=== PATIENT | female | born 1980 | race African-American/Black ===

== ENCOUNTER 2016-07-17 19:52 | Emergency (ER) | payer MEDICAID, MEDICARE ==
[~2016-07-17] VITALS: Ht 165.1 cm; Wt 83.6 kg
[~2016-07-17 19:52] MED LIST: CLIN1CAP5 PO; NAPR500 PO
[2016-07-17 19:53] VITALS: BP 139/96; PULSE 98; RESP 14; TEMP 98.3; O2SAT 99
[2016-07-18] MEDS ORDERED: DICL50TA PO (17:50)
[2016-07-18] MEDS ORDERED: ROBA750T PO (17:50)
== END 2016-07-17 21:39 | disposition left against medical advice (07) ==
LOC: NED 19:52
DX: R68.89 Other general symptoms and signs (principal)
CPT/HCPCS: 99281

== ENCOUNTER 2016-07-18 16:23 | Emergency (ER) | payer MEDICARE ==
[~2016-07-18] VITALS: Ht 165.1 cm; Wt 85.0 kg
[2016-07-18 16:24] VITALS: BP 147/71; PULSE 109; RESP 17; TEMP 98.1; O2SAT 99
[2016-07-18] MEDS ORDERED: ROBA750T PO (17:50)
[2016-07-18] MEDS ORDERED: DICL50TA PO (17:50)
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
[2016-07-18] MEDS ORDERED: KETOROLAC TROMETHAMINE 60 MG/2 ML (IM) VIAL IM ONE (18:00)
[2016-07-18] MEDS ORDERED: ORPHENADRINE INJ 60 MG/2 ML AMP IM ONE (18:00)
== END 2016-07-18 18:47 | disposition home or self-care (01) ==
LOC: NEPB 16:23
DX: S16.1XXA Strain of muscle, fascia and tendon at neck level, initial encounter (principal); E11.9 Type 2 diabetes mellitus without complications; I10 Essential (primary) hypertension; X58.XXXA Exposure to other specified factors, initial encounter
CPT/HCPCS: 96372; 99283; J1885; J2360; L0150

== ENCOUNTER 2016-08-08 01:59 | Emergency (ER) | payer MEDICARE ==
[~2016-08-08 01:59] MED LIST changes: -CLIN1CAP5 PO; +DICL50TA PO; -NAPR500 PO; +ROBA750T PO
[2016-08-08 02:01] VITALS: BP 141/88; PULSE 84; RESP 18; TEMP 98.1; O2SAT 97
[2016-08-08] MEDS ORDERED: CLIN150 PO (02:39)
--- NOTE | 2016-08-08 02:42 | PD ---
HPI Chief Complaint: Oral / Dental Pain or Problem Time Seen by Provider: 02:40 Travel History International Travel<30 days: No Contact w/Intl Traveler<30days: No Traveled to known affect area: No History of Present Illness HPI 36-year-old black female presents to emergency Department with complaints of dental pain. She states that a tooth in her right upper maxilla has been bothering her now for nearly 2 weeks. She is not seen a dentist yet. She has not seen a primary care doctor. She states the pain is radiating up into her right ear. It is moderate in intensity. She is noticing swelling of the lingual hard palate. No fever chills. No difficulty swallowing. No exacerbating symptoms. No palliative activity. PFSH Past Medical History Narrative Medical dIABETES, CHRONIC PAIN Hx Anticoagulant Therapy: No Cardiovascular Problems: No Chemotherapy: No Cerebrovascular Accident: No Diabetes: Yes Patient Takes Glucophage: No Diminished Hearing: No Hypertension: Yes Respiratory: No Tetanus Vaccination: Unknown ?: Not LMP: 08/07/16 : 3 Para: 2 Miscarriage: 1 : 0 Past Surgical History Section: Yes (X1) Cholecystectomy: Yes Gynecologic Surgery: Yes (c section 2012) Hysterectomy: No Other Surgery: Yes Social History Alcohol Use: No Tobacco Use: No Substance Use: No Allergies-Medications (Allergen,Severity, Reaction): Coded Allergies: No Known Allergies (Verified , 08/08/16) Reported Meds & Prescriptions Reported Meds & Active Scripts Active Cleocin (Clindamycin HCl) 150 Mg Cap 300 Mg PO Q6H Review of Systems Except as stated in HPI: all other systems reviewed are Neg Physical Exam Narrative GENERAL: This is a well-nourished, well-developed patient, in no apparent distress. SKIN: No rashes, ecchymoses or lesions. Warm and dry. HEAD: Atraumatic. Normocephalic. EYES: PERRL, EOMI, no discharge or injection. No scleral icterus. EARS: Clear NOSE: Nasal turbinates appear normal. THROAT: Mucosa pink and moist. Airway patent. The patient has multiple dental caries. There is a large dental carry in what appears to be tooth #5. She has swelling of the lingual gingiva into the hard palate. NECK: Trachea midline. supple, moves head freely. LUNGS: Clear to auscultation. CV: Regular in rhythm. ABDOMEN: Soft nontender. EXT: No clubbing cyanosis or edema. Data Data Last Documented VS Vital Signs Date Time Temp Pulse Resp B/P Pulse Ox O2 Delivery O2 Flow Rate FiO2 08/08/16 02:01 98.1 84 18 141/88 97 Room Air Orders Clindamycin (Cleocin) (08/08/16 02:45) MDM Medical Decision Making Medical Screen Exam Complete: Yes Emergency Medical Condition: Yes Medical Record Reviewed: Yes Differential Diagnosis MDM: Moderate Differential diagnoses: Dental abscess, dental caries, osteitis, cellulitis Narrative Course Patient is given clindamycin 300 mg by mouth. This is dental abscess [employer] indicates that the patient received 90 8 mg Dilaudid tablets on 07/22/16 along with 60 morphine 15 mg extended release tablets on 07/22/16. Diagnosis Primary Impression: Dental abscess Patient Instructions: General Instructions Additional Instructions: Rest. Saltwater gargles. Mosier oil on cotton balls. 3 Advil every 6 hours. Clindamycin follow-up with a dentist as soon as possible. And return to the ER if any problems. Med/Other Pt SpecificInfo: Prescription(s) given Scripts Clindamycin (Cleocin)150 Mg [id number] Mg PO Q6H #80 CAP Prov:Tashi Khanna MD 08/08/16 Disposition: 01 DISCHARGE HOME Condition: Stable Lon Carreon Aug 08, 2016 02:42
[2016-08-08] MEDS ORDERED: CLINDAMYCIN 150 MG CAP PO ONE (02:45)
== END 2016-08-08 03:44 | disposition home or self-care (01) ==
LOC: NEPB 01:59
DX: K04.7 Periapical abscess without sinus (principal)
CPT/HCPCS: 99282

== ENCOUNTER 2016-08-20 10:41 | Emergency (ER) | payer MEDICARE, OTHER ==
[~2016-08-20] VITALS: Ht 165.1 cm; Wt 90.1 kg
[~2016-08-20 10:41] MED LIST changes: +CLIN150 PO; -DICL50TA PO; -ROBA750T PO
[2016-08-20 10:43] VITALS: BP 144/88; PULSE 88; RESP 20; TEMP 98.1; O2SAT 100
[2016-08-20] MEDS ORDERED: METF500T PO (11:00)
[2016-08-20] MEDS ORDERED: NOVO7030P2 SQ (11:00)
--- NOTE | 2016-08-20 11:16 | PD ---
HPI Chief Complaint: Medication Refill Request Time Seen by Provider: 10:57 Travel History International Travel<30 days: No Contact w/Intl Traveler<30days: No Traveled to known affect area: No History of Present Illness HPI 36-year-old female presents to the emergency department requesting a refill on insulin and pain medication for her neuropathy. Patient states that she is a diabetic type II. Her blood sugar last night was 132. She says she takes Eugene units in the morning and 20 units at night. She takes metformin 500 mg daily. During history of present illness within a 10 second conversation the patient states that she last injected her insulin 9 months ago , then corrected herself and said one month ago, and then corrected herself again and said she last injected on Friday. She says she has gabapentin at home for peripheral neuropathy. She does not have a current primary care provider. She has insurance but has not established care in this area. No known allergies. No other medical complaints. No other modifying factors or associated signs and symptoms. PFSH Past Medical History Hx Anticoagulant Therapy: No Cardiovascular Problems: No Chemotherapy: No Cerebrovascular Accident: No Diabetes: Yes Diminished Hearing: No Hypertension: Yes Respiratory: No ?: Not LMP: 08/02/16 : 3 Para: 2 Miscarriage: 1 : 0 Past Surgical History Section: Yes (X1) Cholecystectomy: Yes Gynecologic Surgery: Yes (c section 2011) Hysterectomy: No Other Surgery: Yes Social History Alcohol Use: No Tobacco Use: No Substance Use: No Allergies-Medications (Allergen,Severity, Reaction): Coded Allergies: No Known Allergies (Verified , 08/20/16) Reported Meds & Prescriptions Reported Meds & Active Scripts Active Cleocin (Clindamycin HCl) 150 Mg Cap 300 Mg PO Q6H Review of Systems Except as stated in HPI: all other systems reviewed are Neg Physical Exam Narrative GENERAL: Well-nourished, well-developed female patient, in no acute distress SKIN: Warm and dry. HEAD: Atraumatic. Normocephalic. EYES: Pupils equal and round. No scleral icterus. No injection or drainage. ENT: Mucosa pink and moist. Airway patent. NECK: Trachea midline. CARDIOVASCULAR: Regular rate. RESPIRATORY: No accessory muscle use. GASTROINTESTINAL: Obese. MUSCULOSKELETAL: No obvious deformities. No clubbing. No cyanosis. No edema. NEUROLOGICAL: Awake and alert. Oriented 3. No obvious cranial nerve deficits. Motor grossly within normal limits. Normal speech. PSYCHIATRIC: Appropriate mood and affect; insight and judgment normal. Data Data Last Documented VS Vital Signs Date Time Temp Pulse Resp B/P Pulse Ox O2 Delivery O2 Flow Rate FiO2 08/20/16 10:43 98.1 88 20 144/88 100 Room Air MDM Medical Decision Making Medical Screen Exam Complete: Yes Emergency Medical Condition: Yes Medical Record Reviewed: Yes Differential Diagnosis Medical clearance, medication refill, hyperglycemia Narrative Course 36-year-old female requesting medication refill Novolin 70/30 for diabetes type 2 and pain medication for diabetic neuropathy. When asked when she last injected her insulin the patient's first response was 9 months ago and then she corrected herself and said one month ago and then she again corrected herself and said on Friday. She also takes metformin 500 mg daily. Her blood said glucose is 105. I spoke with Dr. Godfrey who agrees her blood sugars too low to refill the medication at this time. I instructed the patient to check her blood sugar routinely and to return to the emergency department if her blood sugar is over 200. The patient became agitated and walked out without discharge instructions and said she would go [facility] where they will give her what she wants. Patient verbalizes understanding and agreement with treatment plan. Patient is medically cleared and stable for discharge. Discussed reasons to return to the emergency department. Instructed patient to follow up with primary care provider. Patient agrees with treatment plan. The patients vital signs are stable and the patient is stable for outpatient follow-up and treatment. Patient discharged home, stable and in no acute distress. Diagnosis Primary Impression: Normal physical exam Referrals: Primary Care Physician Patient Instructions: Diabetic Hyperglycemia (ED), General Instructions, Type 2 Diabetes in Adults (ED) Additional Instructions: Return to the emergency department if blood sugar is above 200 Follow-up with primary care provider Return to the emergency department immediately with worsening of symptoms Med/Other Pt SpecificInfo: No Meds Exist/No RX given Disposition: 01 DISCHARGE HOME Condition: Stable Juana Tran Aug 20, 2016 11:16
== END 2016-08-20 11:20 | disposition home or self-care (01) ==
LOC: NEPK 10:41
DX: E11.65 Type 2 diabetes mellitus with hyperglycemia (principal); Z76.0 Encounter for issue of repeat prescription; I10 Essential (primary) hypertension
CPT/HCPCS: 99281

== ENCOUNTER 2017-04-03 17:45 | Emergency (ER) | payer MEDICARE, OTHER ==
[~2017-04-03] VITALS: Ht 154.9 cm; Wt 90.0 kg
[~2017-04-03 17:45] MED LIST changes: -CLIN150 PO; +METF500T PO; +NOVO7030P2 SQ
[2017-04-03 17:48] VITALS: BP 184/95; PULSE 96; RESP 20; TEMP 98.9; O2SAT 98
--- NOTE | 2017-04-03 18:22 | PD ---
HPI Chief Complaint: Injury Time Seen by Provider: 18:15 Travel History International Travel<30 days: No Contact w/Intl Traveler<30days: No Traveled to known affect area: No History of Present Illness HPI 36 yo F pain and swelling in left foot and ankle for 4 days. hyperinversion mechanism reported. no head trauma. no loc. 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 pain is constant and worse with ambulation. ibuprofen 800mg every 4 hours moderately helpful. PFSH Past Medical History Hx Anticoagulant Therapy: No Cardiovascular Problems: No Chemotherapy: No Cerebrovascular Accident: No Diabetes: Yes Diminished Hearing: No Hypertension: Yes Respiratory: No ?: Not LMP: 03/04/17 : 3 Para: 2 Miscarriage: 1 : 0 Past Surgical History Section: Yes (X1) Cholecystectomy: Yes Gynecologic Surgery: Yes (c section 2011) Hysterectomy: No Other Surgery: Yes Social History Alcohol Use: No Tobacco Use: No Substance Use: No Allergies-Medications (Allergen,Severity, Reaction): Coded Allergies: No Known Allergies (Verified Adverse Reaction, Unknown, 04/03/17) Reported Meds & Prescriptions Reported Meds & Active Scripts Active Reported Metformin (Metformin HCl) 500 Mg Tab 500 Mg PO DAILY With a meal Novolin 70-30 Inj (Insulin Human Isoph/Insulin Regular) 1,000 Unit/10 Ml Vial 10 Units SQ DAILY Review of Systems General / Constitutional: No: Fever Respiratory: No: Shortness of Breath Musculoskeletal: Positive: Pain Physical Exam Narrative GENERAL: 36 yo female, mild distress 2/2 pain SKIN: Warm and dry. HEAD: Normocephalic. EYES: No scleral icterus. No injection or drainage. NECK: Supple, trachea midline. No JVD or lymphadenopathy. CARDIOVASCULAR: Regular rate and rhythm without murmurs, gallops, or rubs. RESPIRATORY: Breath sounds equal bilaterally. No accessory muscle use. GASTROINTESTINAL: Abdomen soft, non-tender, nondistended. MUSCULOSKELETAL: No cyanosis, or edema. TTP overlying L malleolus. 2+ DP bilaterally. moderate swelling overlying lateral malleolus. no gross tenderness about L foot. BACK: Nontender without obvious deformity. No CVA tenderness. Data Data Last Documented VS Vital Signs Date Time Temp Pulse Resp B/P (MAP) Pulse Ox O2 Delivery O2 Flow Rate FiO2 04/03/17 18:04 16 100 Room Air 04/03/17 17:48 98.9 96 184/95 (124) VS reviewed Orders Orders Ed Discharge Order (04/03/17 18:22) Crutches (04/03/17 ) Devan Bandage (04/03/17 18:22) MDM Medical Decision Making Medical Screen Exam Complete: Yes Emergency Medical Condition: Yes Medical Record Reviewed: Yes Differential Diagnosis sprain, dislocation, fracture Narrative Course devan crutches RICE discussed pt prefers no medications here or as prescriptions Diagnosis Primary Impression: Ankle sprain Qualified Codes: S93.402A - Sprain of unspecified ligament of left ankle, initial encounter Disposition: 01 DISCHARGE HOME Condition: Stable Tashi Khanna MD Apr 03, 2017 18:22
== END 2017-04-03 19:42 | disposition home or self-care (01) ==
LOC: NEPK 17:45
DX: S93.402A Sprain of unspecified ligament of left ankle, initial encounter (principal); E11.9 Type 2 diabetes mellitus without complications; I10 Essential (primary) hypertension; X50.9XXA Other and unspecified overexertion or strenuous movements or postures, initial encounter; Y93.01 Activity, walking, marching and hiking; Z79.4 Long term (current) use of insulin; Z79.899 Other long term (current) drug therapy
CPT/HCPCS: 99282; E0113

== ENCOUNTER 2017-04-09 22:07 | Emergency (ER) | payer OTHER, MEDICAID ==
[~2017-04-09] VITALS: Ht 165.1 cm; Wt 90.0 kg
[2017-04-09 22:10] VITALS: BP 148/101; PULSE 82; RESP 18; TEMP 98.2; O2SAT 98
== END 2017-04-09 22:37 | disposition left against medical advice (07) ==
LOC: NED 22:07
DX: S99.919A Unspecified injury of unspecified ankle, initial encounter (principal); X58.XXXA Exposure to other specified factors, initial encounter

== ENCOUNTER 2017-10-02 18:57 | Emergency (ER) | payer OTHER, MEDICAID ==
[~2017-10-02] VITALS: Ht 165.1 cm; Wt 85.0 kg
[2017-10-02 19:31] VITALS: BP 127/86; PULSE 91; RESP 16; TEMP 98.5; O2SAT 100
[2017-10-02] MEDS ORDERED: BENZ1CAP51 PO (20:25)
[2017-10-02] MEDS ORDERED: AUGM875T3 PO (20:25)
--- NOTE | 2017-10-02 20:26 | PD ---
HPI Chief Complaint: ENT Complaint Time Seen by Provider: 19:46 Travel History International Travel<30 days: No Contact w/Intl Traveler<30days: No Traveled to known affect area: No History of Present Illness HPI 37-year-old female presents to the emergency department for evaluation of bilateral ear pain that has been going on for "quite some time". She also reports sore throat and coughing for 2 days. Patient reports the pain 10/10, aching and throbbing, without radiation. She denies any fevers or chills. She has no chronic medical problems and takes no prescribed medications. Patient denies any chance of . Mild severity. PFSH Past Medical History Hx Anticoagulant Therapy: No Cardiovascular Problems: No Chemotherapy: No Cerebrovascular Accident: No Diabetes: Yes Diminished Hearing: No Hypertension: Yes Respiratory: No : 3 Para: 2 Miscarriage: 1 : 0 Past Surgical History Section: Yes (X1) Cholecystectomy: Yes Gynecologic Surgery: Yes (c section 2012) Hysterectomy: No Other Surgery: Yes Social History Alcohol Use: No Tobacco Use: No Substance Use: No Allergies-Medications (Allergen,Severity, Reaction): Coded Allergies: No Known Allergies (Verified Adverse Reaction, Unknown, 10/02/17) Reported Meds & Prescriptions Reported Meds & Active Scripts Active Reported Metformin (Metformin HCl) 500 Mg Tab 500 Mg PO DAILY With a meal Novolin 70-30 Inj (Insulin Human Isoph/Insulin Regular) 1,000 Unit/10 Ml Vial 10 Units SQ DAILY Review of Systems Except as stated in HPI: all other systems reviewed are Neg Physical Exam Narrative GENERAL: Well-nourished, well-developed female patient, ambulatory. Afebrile. SKIN: Focused skin assessment warm/dry. HEAD: Normocephalic. Atraumatic. ENT: Mucosa pink and moist. No erythema or exudates. No uvular edema. No uvular , palatal, or tonsillar deviation. Airway patent. Nasal turbinates appear normal without nasal blood, purulent drainage or septal hematoma. Bilateral tympanic membranes are erythematous with loss of landmarks. No mastoid tenderness. EYES: No scleral icterus. No injection or drainage. NECK: Supple, trachea midline. No JVD or lymphadenopathy. CARDIOVASCULAR: Regular rate and rhythm without murmurs, gallops, or rubs. RESPIRATORY: Breath sounds equal bilaterally. No accessory muscle use. Lung sounds are clear to auscultation. GASTROINTESTINAL: Abdomen soft, non-tender, nondistended. MUSCULOSKELETAL: No cyanosis, or edema. BACK: Nontender without obvious deformity. No CVA tenderness. Data Data Last Documented VS Vital Signs Date Time Temp Pulse Resp B/P (MAP) Pulse Ox O2 Delivery O2 Flow Rate FiO2 10/02/17 19:31 98.5 91 16 127/86 (100) 100 Orders Orders Amoxicil-Clavulanate (Augmentin) (10/02/17 20:30) MDM Medical Decision Making Medical Screen Exam Complete: Yes Emergency Medical Condition: Yes Medical Record Reviewed: Yes Differential Diagnosis Otitis media versus otitis externa versus URI versus strep pharyngitis Narrative Course 37-year-old female presents to the emergency department for evaluation of bilateral ear pain, sore throat, cough and congestion. She does have bilateral otitis media on exam. Patient will be started on Augmentin for otitis media. She also be given a prescription for benzonatate capsules for cough. She is to follow with her primary care physician. The patient was discharged in stable condition with instructions, including return instructions and follow up instructions. Diagnosis Primary Impression: Bilateral otitis media Qualified Codes: H66.003 - Acute suppurative otitis media without spontaneous rupture of ear drum, bilateral Additional Impression: Upper respiratory infection Qualified Codes: J06.9 - Acute upper respiratory infection, unspecified Referrals: Primary Care Physician call for appointment Patient Instructions: Ear Infection (ED), General Instructions Additional Instructions: Take antibiotic as directed until gone. Take benzonatate capsules as directed as needed for cough. Follow-up with a primary care physician. Return to the emergency department for any acute worsening of symptoms. Med/Other Pt SpecificInfo: Prescription(s) given Scripts Benzonatate (Benzonatate) 200 Mg Cap 200 MG PO TID Y for COUGH, #21 CAP 0 Refills Prov: Cassandra Evans 10/02/17 Amoxicillin-Clavulanate (Augmentin) 875-125 Mg Tab 1 TAB PO BID for Infection for 10 Days, #20 TAB 0 Refills Prov: Cassandra Evans 10/02/17 Disposition: 01 DISCHARGE HOME Condition: Stable Cassandra Evans October 02, 2017 20:26
[2017-10-02] MEDS ORDERED: AMOXICILLIN/CLAVULANATE K 875 MG TAB PO ONE (20:30)
== END 2017-10-02 20:33 | disposition home or self-care (01) ==
LOC: NEPK 18:57
DX: H66.93 Otitis media, unspecified, bilateral (principal); J06.9 Acute upper respiratory infection, unspecified; E11.9 Type 2 diabetes mellitus without complications; I10 Essential (primary) hypertension; Z79.4 Long term (current) use of insulin; Z79.899 Other long term (current) drug therapy
CPT/HCPCS: 99283